=== PATIENT | female | born 1985 | race Caucasian/White ===

== ENCOUNTER → 2019-12-15 | Outpatient (CLI) | payer BC ==
--- NOTE | 2019-12-15 14:51 | US ---
EXAMINATION TYPE: Transabdominal DATE OF EXAM: 12/15/2019 2:32 PM COMPARISON: NONE CLINICAL HISTORY: N91.2, R10.32, Z36 Confirm dates. EXAM PERFORMED: Transabdominal (TA) EXAM MEASUREMENTS: GESTATIONAL AGE / DATING Physician Established: Not yet established Dates by LMP: (7 weeks/5 days) EDC: 07/29/19 Dates by First Scan: No previous this is first Dates by Current Scan for: (6 weeks/1 days) EDC: 08/09/19 MATERNAL ANATOMY Uterus: 10.7 X 5.8 X 7.2cm Right Ovary: 3.3 x 2.3 x 2.3cm, cyst right ovary 2.4 x 2.1 x 2.2cm Left Ovary: 2.6 x 1.5 x 1.6cm Post CDS / Adnexa: wnl Presence of free fluid: no GESTATION / SURVEY CRL: 0.5cm ( 6 weeks/1 days) Yolk Sac (normal less than 6mm): 3mm Heart Rate: 132 bpm Rhythm: Normal IUP: Viable IUP Date of LMP: 10/22/19 IMPRESSION: Viable single intrauterine 6 weeks 1 day with heart rate of 132 bpm.
== END | disposition home or self-care (01) ==
LOC: RADUSWWP 14:12
PROVIDERS: ATTEND Family Medicine
DX: Z36.9 Encounter for antenatal screening, unspecified (principal); Z3A.01 Less than 8 weeks gestation of pregnancy; R10.32 Left lower quadrant pain; N91.2 Amenorrhea, unspecified
CPT/HCPCS: 76801

== ENCOUNTER 2020-08-01 06:00 | Inpatient (IN) | payer BC ==
[2020-08-01] MEDS ORDERED: TERBUTALINE 1 MG/ML VIAL SQ PRN (06:30)
[2020-08-01] MEDS ORDERED: METHYLERGONOVINE 0.2 MG/ML 1 ML AMP IM PRN (06:30)
[2020-08-01] MEDS ORDERED: LIDOCAINE 0.5% (PF) 5 MG/ML (50 ML SDV) SQ PRN (06:30)
[2020-08-01] MEDS ORDERED: OXYTOCIN 10 UNIT/ML 1 ML VIAL IM PRN (06:30)
[2020-08-01] MEDS ORDERED: CARBOPROST TROMETHAMINE 250 MCG/ML 1 ML AMP IM PRN (06:30)
[2020-08-01 06:44] LABS: Basophils % (A) 0 %; Eosinophils # (A) 0.1 k/uL (0-0.7); Eosinophils % (A) 1 %; HCT 39.7 % (34.0-46.0); HGB 13.3 gm/dL (11.4-16.0); Lymphocytes # (A) 2.5 k/uL (1.0-4.8); Lymphocytes % (A) 29 %; MCH 25.2 pg (25.0-35.0); MCHC 33.4 g/dL (31.0-37.0); MCV 75.5 fL (80.0-100.0); Mean Platelet Volume 6.9; Microcytosis Slight; Monocytes # (A) 0.4 k/uL (0-1.0); Monocytes % (A) 5 %; Neutrophils # (A) 5.4 k/uL (1.3-7.7); Neutrophils % (A) 63 %; Platelet Count 274 k/uL (150-450); RBC 5.26 m/uL (3.80-5.40); RDW 15.7 % (11.5-15.5); WBC 8.5 k/uL (3.8-10.6)
[2020-08-01] MEDS: OXYTOCIN 30 UNITS/500 ML NS 30 UNIT in SALINE 1 500ML.BAG IV SCH ×2 (06:46→19:29)
[2020-08-01] MEDS: LACTATED RINGERS 1,000 ML IV SCH ×3 (06:46→15:52)
[2020-08-01 07:19] LABS: Glucose,Whole Blood 79 mg/dL (75-99)
--- NOTE | 2020-08-01 07:56 | P.HPOB ---
History of Present Illness H&P Date: 08/01/20 Chief Complaint: Here for induction of labor This is a 35-year-old white female 5 para 20-2 EDC 08/08/2020 at 39 weeks gestation. Patient presents today for induction by recommendation of maternal medicine team. She is a history of type 2 diabetes mellitus on insulin, and gestational hypertension, as well as advanced maternal age. This morning she is feeling well, she denies fluid leakage or vaginal bleeding. She is having irregular spontaneous contractions. Past medical history is significant for insulin-dependent diabetes, anemia, and history of kidney stones. Past surgical history wisdom teeth extracted in the past. Current medications insulin per pump, low dose baby aspirin daily, metformin 500 mg twice daily. ALLERGIES none known. Family history significant for diabetes, breast cancer, hypertension. Reproductive history normal spontaneous vaginal deliveries 2, most recent delivery 11 years ago. Social history patient is , she is a nurse at [employer]. She is a former tobacco smoker quit in 2006. history significant for blood type O+, rubella status immune. Urine culture, hepatitis B surface antigen, gonorrhea and chlamydia cultures, group B strep cultures all negative. Rubella status immune. Pap smear negative. On exam patient is 5 foot 7 inches, 267 pounds, blood pressure on admission 130/105, repeat 140s over 70s. Initial heart rate 120. Gen. physical exam is within normal limits. Extremities reveal no edema. Fundus is firm, midline, 39 week size. Cervix is 3 cm dilated, soft, 60% effaced, -2 station, vertex presentation, anterior. Artificial amniorrhexis reveals clear fluid. heart rate is consistent with reactive NST. Impression: 39 week intrauterine , advanced maternal age, type 2 diabetes on insulin, gestational hypertension. Blood sugar on admission 79. Plan continue close maternal and surveillance. Analgesic options have been reviewed. Patient will manage her blood sugar as per protocol in agreement with maternal- medicine. Anticipate normal spontaneous vaginal delivery. Review of Systems Constitutional: Reports as per HPI Past Medical History Past Medical History: Diabetes Mellitus History of Any Multi-Drug Resistant Organisms: None Reported Past Surgical History: No Surgical Hx Reported Past Anesthesia/Blood Transfusion Reactions: No Reported Reaction Past Psychological History: No Psychological Hx Reported Smoking Status: Never smoker Past Alcohol Use History: None Reported Past Drug Use History: None Reported - Past Family History Mother Family Medical History: Diabetes Mellitus Medications and Allergies Home Medications Medication Instructions Recorded Confirmed Type Aspirin [Adult Low Dose Aspirin EC] 81 mg PO 08/01/20 History Docusate [Colace] 100 mg PO ONCE 08/01/20 08/01/20 History Insulin Aspart [NovoLOG] 8 units SQ AC-BRKFST 08/01/20 08/01/20 History Insulin Aspart [NovoLOG] 12 units SQ AC-LUNCH 08/01/20 08/01/20 History Insulin Aspart [NovoLOG] 22 units SQ AC-SUPPER 08/01/20 08/01/20 History Insulin NPH Hum/Reg Insulin Hm 32 unit SQ HS 08/01/20 08/01/20 History [NovoLIN 70-30 100 UNIT/ML VIAL] Insulin NPH Hum/Reg Insulin Hm 42 unit SQ AC-BRKFST 08/01/20 08/01/20 History [NovoLIN 70-30 100 UNIT/ML VIAL] Pnv No.95/Ferrous Fum/Folic AC 1 tab PO DAILY 08/01/20 08/01/20 History [ Multivitamin Tablet] Allergies Allergy/AdvReac Type Severity Reaction Status Date / Time sulfamethoxazole AdvReac Diarrhea Verified 08/01/20 06:23 [From Bactrim] trimethoprim [From Bactrim] AdvReac Diarrhea Verified 08/01/20 06:23 Exam Vital Signs Temp Pulse Resp BP Pulse Ox 08/01/20 06:37 96.1 F L 120 H 16 130/105 98 Intake and Output 07/31/20 08/01/20 08/01/20 22:59 06:59 14:59 Other: Weight 121.109 kg See dictation in HPI please Results Result Diagrams: 08/01/20 06:20 Abnormal Lab Results - Last 24 Hours (Table) 08/01/20 Range/Units 06:20 MCV 75.5 L (80.0-100.0) fL RDW 15.7 H (11.5-15.5) % Assessment and Plan Assessment: 39 week intrauterine , advanced maternal age, insulin-dependent diabetes, gestational hypertension. All signs this morning reassuring. Here for induction of labor. Plan: Oxytocin per hospital protocol. Close maternal and surveillance. Insulin and blood sugar management as per maternal medicine recommendations. Analgesic options reviewed. Anticipate normal spontaneous vaginal delivery. Time with Patient: Less than 30
[2020-08-01] MEDS ORDERED: fentaNYL (PF) 50 MCG/ML 5 ML AMP ONE (11:00)
[2020-08-01] MEDS ORDERED: ROPIVACAINE 5MG/ML 20ML VIAL ONE (11:00)
[2020-08-01] MEDS ORDERED: SODIUM CHLORIDE 0.9% 100 ML BAG ONE (11:00)
[2020-08-01 14:05] LABS: Glucose,Whole Blood 88 mg/dL (75-99)
[2020-08-01] MEDS ORDERED: ZOLPIDEM 5 MG TAB PO PRN (17:55)
[2020-08-01] MEDS ORDERED: diphenhydrAMINE 25 MG CAP PO PRN (17:55)
[2020-08-01] MEDS ORDERED: LANOLIN CREAM 5 GM TUBE TOPICAL PRN (17:55)
[2020-08-01] MEDS ORDERED: SIMETHICONE 80 MG CHEWABLE PO PRN (17:55)
[2020-08-01] MEDS ORDERED: diphenhydrAMINE 50 MG/ML 1 ML VIAL IVP PRN ×2 (17:55)
[2020-08-01] MEDS ORDERED: diphenhydrAMINE 50 MG CAP PO PRN (17:55)
[2020-08-01] MEDS ORDERED: BENZOCAINE/MENTHOL SPRAY 1 GM/SPRAY AEROSOL TOPICAL PRN (17:55)
[2020-08-01] MEDS ORDERED: HYDROCORTISONE 2.5% RECTAL CREAM 30 GM TUBE RECTAL PRN (17:55)
--- NOTE | 2020-08-01 17:55 | P.PROBDLV ---
Vaginal Delivery Note - . Vaginal Delivery Note: This is a 35-year-old female 5 para 20-2 EDC 08/08/2020 at 39 weeks gestation who presented for induction. is remarkable for type 2 diabetes mellitus on insulin, gestational hypertension, advanced maternal age. [place] strep cultures negative. Please see history and physical for details. Artificial amniorrhexis revealed clear fluid. Oxytocin was started and titrated per hospital protocol. Patient became uncomfortable and requested epidural, thi s was placed without difficulty. She progressed well through the first stage of labor was judged to be completely dilated at 1712 hours. She began the second stage of labor at that time. With excellent maternal expulsive efforts and position changes, 's head ultimately descended. Perineal body was prepped and draped in usual sterile fashion. 's head delivered occiput anterior and she restituted accordingly. There was no nuchal cord noted. The right or anterior shoulder was delivered from underneath the pubic symphysis at which time the oropharynx, and nasopharynx, and external nares were all bulb suctioned. Patient was officially delivered a liveborn female infant at 1742 hours. Umbilical cord was doubly clamped and ligated, she was handed to waiting nurses for evaluation where scores of 8 and 9 at one and 5 minutes respectively were given. Placenta delivered spontaneously, it was inspected and noted to be intact at 1745 hours. At this time the uterus was massaged. Careful inspection of the cervix, vagina, perineum, periurethral, and perirectal areas revealed no lacerations and no defects. Total estimated blood loss 200 mL's. All sponge needle and en hancement counts are correct. weighed 4160 g or 9 lbs. 2 oz. The patient and her family are allowed to begin the bonding experience in the LDR. Blood sugar prior to delivery 87, repeat blood sugar pending.
[2020-08-01 18:44] LABS: Hemoglobin A1C 5.8 % (4.0-6.0)
[2020-08-01] MEDS: IBUPROFEN 600 MG TAB PO SCH (18:48)
[2020-08-01] MEDS: ACETAMINOPHEN TAB 325 MG TAB PO PRN (21:26)
[2020-08-01] MEDS: SENNOSIDES-DOCUSATE SODIUM 1 EACH TAB PO SCH (21:34)
[2020-08-02] MEDS: IBUPROFEN 600 MG TAB PO SCH ×4 (00:34→19:34)
[2020-08-02] MEDS: ACETAMINOPHEN TAB 325 MG TAB PO PRN ×2 (03:40→16:51)
[2020-08-02 06:43] LABS: Basophils % (A) 0 %; Eosinophils % (A) 0 %; HCT 32.3 % (34.0-46.0); HGB 11.4 gm/dL (11.4-16.0); Lymphocytes # (A) 2.3 k/uL (1.0-4.8); Lymphocytes % (A) 20 %; MCH 26.5 pg (25.0-35.0); MCHC 35.2 g/dL (31.0-37.0); MCV 75.2 fL (80.0-100.0); Mean Platelet Volume 6.5; Microcytosis Slight; Monocytes # (A) 0.7 k/uL (0-1.0); Monocytes % (A) 6 %; Neutrophils # (A) 8.3 k/uL (1.3-7.7); Neutrophils % (A) 73 %; Platelet Count 219 k/uL (150-450); RBC 4.29 m/uL (3.80-5.40); RDW 15.6 % (11.5-15.5); WBC 11.5 k/uL (3.8-10.6)
[2020-08-02] MEDS: SENNOSIDES-DOCUSATE SODIUM 1 EACH TAB PO SCH (08:17)
[2020-08-02 12:03] VITALS: RESP 16; TEMP 97.8
[2020-08-02 16:52] VITALS: BP 118/67; PULSE 94
--- NOTE | 2020-08-03 08:09 | P.DS ---
Providers Date of admission: 08/01/20 06:05 Expected date of discharge: 08/02/20 Attending physician: Aicha Leos Primary care physician: Stated None Hospital Course: This is a 35-year-old white female 5 para 20-2 at 39 weeks gestation. Patient's is remarkable for advanced maternal age, chronic hypertension, insulin-dependent diabetes. She was co-managed with maternal- medicine team out at [facility]. Recommendation was for delivery at 39 weeks, cervix is favorable, patient therefore presents for induction of labor. Please see dictated history and physical for details. Artificial amniorrhexis revealed clear fluid. Epidural was placed per her request. Oxytocin was started and titrated. Patient went on to deliver vaginally a liveborn female infant with scores of 8 and 9 at one and 5 minutes respectively. Infant weighed 4160 g or 9 lbs. 2 oz. Patient had a small first-degree perineal laceration that was easily repaired. Delivery was otherwise unremarkable. Blood pressure normal throughout her stay, blood sugar also within the normal range. Patient was discharged home in very good condition. She will continue checking her blood sugars as per recommendations from maternal- medicine. She will continue taking her vitamin daily. Breast-feeding is going well, she has a breast pump at home. She will call me with any fevers shakes or chills, foul smelling or copious lochia, with the passage of large blood clots, with any pain not alleviated by [id number] products, or indeed with any concerns. Contraceptive choices have been reviewed and we will discuss this further in the office. [place] infant will follow-up with packing machine tender as per recommendations. Assessment: Doing well status post vaginal delivery Patient Condition at Discharge: Good Plan - Discharge Summary Discharge Rx Participant: No New Discharge Prescriptions: No Action Insulin NPH Hum/Reg Insulin Hm [NovoLIN 70-30 100 UNIT/ML VIAL] 32 unit SQ HS Insulin Aspart [NovoLOG] 8 units SQ AC-BRKFST Docusate [Colace] 100 mg PO ONCE Pnv No.95/Ferrous Fum/Folic AC [ Multivitamin Tablet] 1 tab PO DAILY Insulin NPH Hum/Reg Insulin Hm [NovoLIN 70-30 100 UNIT/ML VIAL] 42 unit SQ AC-BRKFST Insulin Aspart [NovoLOG] 12 units SQ AC-LUNCH Insulin Aspart [NovoLOG] 22 units SQ AC-SUPPER Aspirin [Adult Low Dose Aspirin EC] 81 mg PO Discharge Medication List Aspirin [Adult Low Dose Aspirin EC] 81 mg PO 08/01/20 [History] Docusate [Colace] 100 mg PO ONCE 08/01/20 [History] Insulin Aspart [NovoLOG] 8 units SQ AC-BRKFST 08/01/20 [History] Insulin Aspart [NovoLOG] 12 units SQ AC-LUNCH 08/01/20 [History] Insulin Aspart [NovoLOG] 22 units SQ AC-SUPPER 08/01/20 [History] Insulin NPH Hum/Reg Insulin Hm [NovoLIN 70-30 100 UNIT/ML VIAL] 32 unit SQ HS 08/01/20 [History] Insulin NPH Hum/Reg Insulin Hm [NovoLIN 70-30 100 UNIT/ML VIAL] 42 unit SQ AC- BRKFST 08/01/20 [History] Pnv No.95/Ferrous Fum/Folic AC [ Multivitamin Tablet] 1 tab PO DAILY 08/01/20 [History] Follow up Appointment(s)/Referral(s): Aicha Leos MD [STAFF PHYSICIAN] - 6 Weeks Patient Instructions/Handouts: *Surgery [facility] - Laser Vaporization of Cervical/Vaginal Lesions Discharge Instr, Vaginal Delivery (DC) Discharge Disposition: HOME SELF-CARE
== END 2020-08-02 22:20 | disposition home or self-care (01) | DRG 807 ==
LOC: 4FBP 06:05
PROVIDERS: ADMIT Obstetrics & Gynecology; ATTEND Obstetrics & Gynecology
PROC: 3E033VJ Introduction of Other Hormone into Peripheral Vein, Percutaneous Approach (ICD-10-PCS; principal; 2020-08-01)
PROC: 00HU33Z Insertion of Infusion Device into Spinal Canal, Percutaneous Approach (ICD-10-PCS; principal; 2020-08-01)
PROC: 10907ZC Drainage of Amniotic Fluid, Therapeutic from Products of Conception, Via Natural or Artificial Opening (ICD-10-PCS; principal; 2020-08-01)
PROC: 10E0XZZ Delivery of Products of Conception, External Approach (ICD-10-PCS; principal; 2020-08-01)
PROC: 3E0R3BZ Introduction of Anesthetic Agent into Spinal Canal, Percutaneous Approach (ICD-10-PCS; principal; 2020-08-01)
DX: O24.12 Pre-existing type 2 diabetes mellitus, in childbirth (principal); Z37.0 Single live birth; E11.9 Type 2 diabetes mellitus without complications; Z3A.39 39 weeks gestation of pregnancy; O13.4 Gestational [pregnancy-induced] hypertension without significant proteinuria, complicating childbirth; Z79.82 Long term (current) use of aspirin; Z79.4 Long term (current) use of insulin; Z79.899 Other long term (current) drug therapy; Z87.442 Personal history of urinary calculi; Z87.891 Personal history of nicotine dependence; Z86.2 Personal history of diseases of the blood and blood-forming organs and certain disorders involving the immune mechanism; Z88.2 Allergy status to sulfonamides; Z83.3 Family history of diabetes mellitus; Z80.3 Family history of malignant neoplasm of breast; Z82.49 Family history of ischemic heart disease and other diseases of the circulatory system
CPT/HCPCS: 83036; 85025; 86850; 86900; 86901